=== PATIENT | male | born 1960 | race Caucasian/White ===

== ENCOUNTER 2025-01-13 14:57 | Emergency (ER) | payer OTHER, SELFPAY ==
[2025-01-13] VITALS (9 sets, daily range): BP systolic 104–130; BP diastolic 65–83; PULSE 47–67
[2025-01-13 15:19] LABS: % Basophils 0.6 % (0-2); % Eosinophils 0.5 % (0-6); % Immature Granulocytes 0.2 % (0-0.5); % Lymphocytes 21.2 % (20.5-51.1); % Monocytes 6.1 % (1.7-9.3); % Neutrophils 71.4 % (42.2-75.2); Absolute Basophils 0.1 10^3/uL (0-0.2); Absolute Lymphocytes 1.7 10^3/uL (1.2-3.4); Absolute Monocytes 0.5 10^3/uL (0.1-0.6); Absolute Neutrophils 5.8 10^3/uL (1.4-6.5); Hematocrit 44.7 % (39.0-52.0); Hemoglobin 15.3 g/dL (13.0-18.0); Mean Corp Hgb Conc. 34.2 g/dL (33.0-37.0); Mean Corpuscular Hgb 29.9 pg (27.0-31.0); Mean Corpuscular Volume 87.3 fL (80.0-94.0); Mean Platelet Volume 8.6 fL (7.4-10.4); Nucleated Red Blood Cells % 0 % (-); Platelet Count 277 10^3/uL (130-400); Red Blood Cell Count 5.12 10^6/uL (4.70-6.10); Red Cell Dist. Width 13.2 % (11.5-14.5); White Blood Cell Count 8.1 10^3/uL (4.8-10.8)
[2025-01-13 15:43] LABS: ALT (SGPT) 16 U/L (0-50); AST (SGOT) 17 U/L (17-59); Albumin 4.3 g/dl (3.5-5.0); Alkaline Phosphatase 52 U/L (38-126); Blood Urea Nitrogen 17 mg/dl (9-20); Calcium 10.4 mg/dl (8.4-10.2); Carbon Dioxide 26 mmol/L (22-30); Chloride 110 mmol/L (98-107); Glucose 126 mg/dl (70-99); Potassium 4.2 mmol/L (3.5-5.1); Sodium 143 mmol/L (135-145); Total Bilirubin 0.5 mg/dl (0.2-1.3); eGFR > 60.00
--- NOTE | 2025-01-13 18:50 | ED.GENMED ---
History of Present Illness
General
Chief Complaint: Dizziness
Time Seen by Provider: 01/13/25 18:33
History of Present Illness
History of Present Illness:
Patient is a 64-year-old male with no past medical history presents to the emergency department dizziness. Patient is for the past few days he has been lightheaded dizzy especially when going from sitting to standing and walking for long periods of
time. He does state that he only drinks 40 ounces of water and drinks much more coffee than water. He also started using Zins again and he noticed that that made him dehydrated the last time he used it. He denies any chest pain shortness of
breath numbness tingling. Occasionally he feels this both his legs. Rubbery but no weakness. No difficulty with his gait.
Phy Exam
Physical Exam
Physical Exam:
GENERAL: in no acute distress
HEENT: normocephalic, extraocular movements intact, dry oral mucosa
NECK: normal inspection
RESPIRATORY: no respiratory distress, clear to auscultation bilaterally
CARDIOVASCULAR: regular rate and rhythm
ABDOMEN/: soft, non-distended, non-tender to palpation, no rebound or guarding
EXTREMITIES: non-tender, no edema/swelling
NEUROLOGIC: NEUROLOGIC: alert and oriented x 3, cranial nerves II-XII intact, right upper extremity strength 5/5, left upper extremity strength 5/5, right lower extremity strength 5/5, left lower extremity strength 5/5, normal sensation to light
touch, normal [id number] and [id number], gait not tested formally
SKIN: warm
Course
Orders/Labs/Results
Orders:
Orders
01/13/25 14:59
Electrocardiogram (*1) Urgent
Reason for Study: Vertigo / Dizzy
EKG- Treatment ONCE
01/13/25 15:[address] [CT Head W/o Iv Contrast] Urgent
Comment:
Reason For Exam: dizziness
01/13/25 15:10
Complete Blood Count/With Diff Urgent
Comprehensive Metabolic Panel Urgent
01/13/25 19:34
Orthostatic VS- Treatment ONCE
01/13/25 19:36
Electrocardiogram (*1) Urgent
Reason for Study: Bradycardia / Tachycardia
EKG- Treatment ONCE
01/13/25 19:42
0.9% Sodium Chloride 1000 ml [Nss] 1,000 ml IV BOLUS
Abnormal Lab Results
01/13/25
15:10
Chloride 110 H mmol/L
(98-107)
Glucose 126 H mg/dl
(70-99)
Calcium 10.4 H mg/dl
(8.4-10.2)
01/13/25 15:10
01/13/25 15:10
Vital Signs
Initial and Last Documented VS:
Initial Vital Signs
Temp Pulse Resp Pulse Ox
98.4 F 70 18 98
01/13/25 15:00 01/13/25 15:00 01/13/25 15:00 01/13/25 15:00
Last Documented Vital Signs
Temp Pulse Resp BP Pulse Ox
98.4 F 55 14 119/69 100
01/13/25 15:00 01/13/25 22:00 01/13/25 22:00 01/13/25 21:00 01/13/25 21:30
MDM/Problems Addressed
Differential Diagnosis Includes:
Patient is a 64-year-old male with no past medical history presenting to the emergency department with dizziness especially when going from sitting to standing and with movement. Vitals unremarkable. Exam does show dry oral mucosa with no
neurodeficits. Likely orthostatic dizziness. History exam not consistent with posterior CVA. History exam also not consistent with cardiac arrhythmia given that there is a clear trigger. Blood work obtained prior to my evaluation is
unremarkable. He did obtain a CT scan of the head prior to my evaluation which was also negative. Will give p.o. fluids and ambulate to see if symptoms improve.
Patient with positive orthostatic vital signs. He did feel slightly dizzy after p.o. fluids will give additional IV fluids and reassess.
On reassessment patient feels much better after receiving IV fluid. Will discharge at this time. Patient advised to increase fluid intake. Strict return precautions given.
*Critical Care Note
Total Time (30-74mins, 75-104mins- exclusive of procedures): Not Applicable
ED Attending Note
-
Portions of this chart may have been created with voice recognition software.� Occasional wrong word or��sound alike� substitutions may have occurred due to the inherent limitations of voice recognition software.
Discharge Plan
Departure
Patient Disposition: Home (Routine Discharge)
Date of Disposition: 01/13/25
Time of Disposition: 22:02
Patient with high blood pressure during this ER visit?: No
Discharge Problem:
Orthostatic dizziness
Referrals:
Ming Ricardo MD [Family Provider] -
Activity Restrictions/Additional Instructions:
You were seen in the Emergency Department today for dizziness. While you were here we performed blood work, which was reassuring. Please make sure you stay well-hydrated.
We would like for you to follow up with your primary care physician for further evaluation. If you experience fever, worsening of your symptoms, or develop any other new or concerning symptoms, please return to the Emergency Department immediately.
Please see the attached sheet for additional information.
Interventions
Interventions:
*Risk Screen - Suicide Last Done: 01/13/25 15:00
*General Assessment Last Done: 01/13/25 15:00
*Neglect/Abuse Screening Last Done: 01/13/25 15:00
*ED- Fall Risk Assessment Last Done: 01/13/25 15:00
*ED COVID-19 Vaccine History Last Done: 01/13/25 15:00
ED- Neurological Assessment Last Done: 01/13/25 19:16
ED- Cardiac Assessment Last Done: 01/13/25 19:45
ED Swallowing Screen Last Done: 01/13/25 19:16
Discharge Date and Time
Print Language: LAO
[2025-01-13] MEDS: NSS 1000 IV (20:26)
== END 2025-01-13 22:20 | disposition home or self-care (01) ==
LOC: EMR 14:57
PROVIDERS: Emergency Medicine; EMERGENCY PHYSICIAN Student in an Organized Health Care Education/Training Program; FAMILY PHYSICIAN Family Medicine
DX: R42 Dizziness and giddiness (principal)
CPT/HCPCS: 99284; 96360; 70450; 80053; 85025; 93005